=== PATIENT | male | born 1965 | race Caucasian/White ===

== ENCOUNTER 2016-12-04 21:17 | Emergency (ER) | payer BC ==
[2016-12-04] MEDS ORDERED: ONDANSETRON HCL IV 4 MG/2 ML VIAL IVP ONE (21:35)
[2016-12-04] MEDS ORDERED: HYDROMORPHONE HCL 1 MG/ML CPJ IVP ONE (21:35)
--- NOTE | 2016-12-04 21:59 | Emergency Department Record ---
History of Present Illness - General Chief Complaint: Animal Bite Stated Complaint: DOG BITE Time Seen by Provider: 12/04/16 21:35 Source: Patient, Family Mode of Arrival: Ambulatory Limitations: No limitations - History of Present Illness Initial Comments: pt had an unprovoked attack from his dog that is a 150lb mastiff. dog is 18mos. old and has not been neutered. dog has no hx of previous attacks but has been being increasingly aggressive with other dogs in household. family plans to euthanize dog tonight. dog grabbed pts l arm injuring it and his right hand. pts and dogs shots are up to date. MD Complaint: Animal bite Onset/Timin -: Minutes(s) Left: Arm, Right: Hand Animal: Dog Description: Household pet Mechanism: Bite Severity scale (1-10): 10 Context: Unprovoked Associated Symptoms: Bleeding - Related Data Patient Tetanus UTD (within 5 yrs): Yes Home Medications Medication Instructions Recorded Confirmed Last Taken Lisinopril 40 mg PO DAILY 12/04/16 12/04/16 12/04/16 Previous Rx's Medication Instructions Recorded Amoxicillin/Potassium Clav 1 tab PO BID #20 tab 12/04/16 [Augmentin 875-125 Tablet] Hydrocodone/Acetaminophen [[place] 1 tab PO Q6H PRN #10 tab 12/04/16 5mg/325mg] Allergies Allergy/AdvReac Type Severity Reaction Status Date / Time No Known Drug Allergies Allergy Verified 12/04/16 21:24 Travel Screening - Travel/Exposure Within Last 30 Days Have you traveled within the last 30 days?: No - Travel Symptoms Symptom Screening: None Review of Systems Reviewed: No additional complaints except as noted below Constitutional: Reports: As per HPI. Denies: Chills, Fever, Malaise, Night sweats, Weakness, Weight change Eyes: Reports: As per HPI. Denies: Eye discharge, Eye pain, Photophobia, Vision change ENT: Reports: As per HPI. Denies: Congestion, Dental pain, Ear pain, Epistaxis , Hearing loss, Throat pain Respiratory: Reports: As per HPI. Denies: Cough, Dyspnea, Hemoptysis, Stridor, Wheezes Cardiovascular: Reports: As per HPI. Denies: Arrhythmia, Chest pain, Dyspnea on exertion, Edema, Murmurs, Orthopnea, Palpitations, Paroxysmal nocturnal dyspnea, Rheumatic Fever, Syncope Endocrine: Reports: As per HPI. Denies: Fatigue, Heat or cold intolerance, Polydipsia, Polyuria Gastrointestinal: Reports: As per HPI. Denies: Abdominal pain, Constipation, Diarrhea, Hematemesis, Hematochezia, Melena, Nausea, Vomiting Genitourinary: Reports: As per HPI. Denies: Dysuria, Frequency, Hematuria, Incontinence, Retention, Testicular pain, Testicular mass, Urgency Musculoskeletal: Reports: As per HPI. Denies: Arthralgia, Back pain, Gout, Joint swelling, Myalgia, Neck pain Skin: Reports: As per HPI. Denies: Bruising, Change in color, Change in hair/ nails, Lesions, Pruritus, Rash Neurological: Reports: As per HPI. Denies: Abnormal gait, Confusion, Headache, Numbness, Paresthesias, Seizure, Tingling, Tremors, Vertigo, Weakness Psychiatric: Reports: As per HPI. Denies: Anxiety, Auditory hallucinations, Depression, Homicidal thoughts, Suicidal thoughts, Visual hallucinations Hematological/Lymphatic: Reports: As per HPI. Denies: Anemia, Blood Clots, Easy bleeding, Easy bruising, Swollen glands Past Medical History - SOCIAL HISTORY Smoking Status: Never smoker - RESPIRATORY Hx Respiratory Disorders: No - CARDIOVASCULAR Hx Cardio Disorders: Yes Hx Hypertension: Yes - NEURO Hx Neuro Disorders: No - GI Hx GI Disorders: No - Hx Genitourinary Disorders: No - ENDOCRINE Hx Endocrine Disorders: No - MUSCULOSKELETAL Hx Musculoskeletal Disorders: No - PSYCH Hx Psych Problems: No - HEMATOLOGY/ONCOLOGY Hx Hematology/Oncology Disorders: No Family Medical History Any Significant Family History?: Yes Hx Cancer: Mother Hx Heart Disease: Mother, Grandparents Physical Exam - General General Appearance: Alert, Oriented x3, Cooperative, Mild distress - Head Head exam: Normal inspection - Eye Eye exam: Normal appearance, PERRL, EOMI Pupils: Normal accommodation - ENT ENT exam: Normal exam, Mucous membranes moist, Normal external ear exam, Normal orophraynx Ear exam: Normal external inspection. negative: External canal tenderness Nasal Exam: Normal inspection. negative: Discharge, Sinus tenderness Mouth exam: Normal external inspection, Tongue normal Teeth exam: Normal inspection. negative: Dental caries Throat exam: Normal inspection. negative: Tonsillar erythema, Tonsillar exudate - Neck Neck exam: Normal inspection, Full ROM. negative: Tenderness - Respiratory Respiratory exam: Normal lung sounds bilaterally. negative: Respiratory distress - Cardiovascular Cardiovascular Exam: Regular rate, Normal rhythm, Normal heart sounds - GI/Abdominal GI/Abdominal exam: Soft, Normal bowel sounds. negative: Tenderness - Rectal Rectal exam: Deferred - exam: Deferred - Extremities Extremities exam: Full ROM, Normal capillary refill, Tenderness Image of Full Body: 1 - bite mejia on both sides w swelling and tenderness 2 - lac from dog bite - Back Back exam: Reports: Normal inspection, Full ROM. Denies: Muscle spasm, Rash noted, Tenderness - Neurological Neurological exam: Alert, Normal gait, Oriented X3, Reflexes normal - Psychiatric Psychiatric exam: Normal affect, Normal mood - Skin Skin exam: Dry, Intact, Normal color, Warm Course Vital Signs 12/04/16 21:22 Temperature 98 F Pulse Rate [ 72 Pulse Ox Probe] Respiratory 16 Rate Blood Pressure 156/102 [Right Arm] Pulse Ox 97 Medical Decision Making - Management Options MDM Management: Additional Work-up Planned (e.g. ADM/Transfer/OP Study) - Data Complexity MDM Data: X-Ray Ordered and/or Reviewed - Radiology Data Radiology results: Report reviewed, Image reviewed Disposition Disposition: Discharge Clinical Impression: Dog bite of arm Qualifiers: Encounter type: initial encounter Laterality: left Qualified Code(s): S41.152A - Open bite of left upper arm, initial encounter; W54.0XXA - Bitten by dog, initial encounter Disposition: Home, Self-Care Return To Work/School Note Provided: No Condition: (1) Good Instructions: Animal Bite (ED) Additional Instructions: recheck tomorrow. return sooner if worse. Prescriptions: Amoxicillin/Potassium Clav [Augmentin 875-125 Tablet] 1 tab PO BID #20 tab Hydrocodone/Acetaminophen [[place] 5mg/325mg] 1 tab PO Q6H PRN #10 tab PRN Reason: Pain - General Forms: Patient Portal Access Laceration - Other - Time Out Informed consent:: Informed consent obtained Confirmed first & last name, , procedure, correct site?: Yes Start Date:: 12/04/16 Start Time:: 22:40 - Location Location of laceration:: Left Laceration located on:: Forearm Length of laceration:: 2.5 Length of laceration:: cm Full Body: 1 - 2.5 - Clean and Prep Laceration cleaning method:: Copious Irrigation Laceration cleaning agent:: Normal Saline - Local Anesthetic Lidocaine used:: 1% Lidocaine dose:: 1 mL - Medication Medication(s) administered:: Hydromorphine - Procedural Detail Tissue detail:: Torn Foreign body in the wound?: No Undermining was preformed?: No Stent applied?: No Fowler applied?: No Retention suture(s) applied?: No Skin suture pattern:: Interrupted Suture material/size:: 5-0: Prolene Number of skin sutures:: 1 Neurovascular intact?: Yes - Post Procedural Detail Complications:: Yes Procedure Tolerated by Patient:: Well Laceration - Other - Time Out Informed consent:: Informed consent obtained Confirmed first & last name, , procedure, correct site?: Yes Start Date:: 12/04/16 Start Time:: 22:55 - Location Location of laceration:: Left Laceration located on:: Forearm Length of laceration:: 3 Length of laceration:: cm Full Body: 1 - 3 cm lac - Clean and Prep Laceration cleaning method:: Copious Irrigation Laceration cleaning agent:: Normal Saline - Local Anesthetic Lidocaine used:: 1% Lidocaine dose:: 1 mL - Medication Medicated for procedure?: Yes Medication(s) administered:: Hydromorphine - Procedural Detail Foreign body in the wound?: No Undermining was preformed?: No Stent applied?: No Niyah applied?: No Skin suture pattern:: Interrupted Suture material/size:: 5-0: Prolene Neurovascular intact?: Yes - Post Procedural Detail Complications:: No Procedure Tolerated by Patient:: Well
[2016-12-04] MEDS ORDERED: AMOXICILLIN/POTASSIUM CLAV 875MG/125MG TABLET PO ONE (22:37)
[2016-12-04] MEDS ORDERED: HYDROCODONE/APAP 5/325MG TABLET PO ONE (23:21)
--- NOTE | 2016-12-06 13:59 | RADIOLOGY REPORT ---
EXAM: LEFT FOREARM, TWO VIEWS HISTORY: PATIENT HAS A DOG BITE TO THE LEFT FOREARM. TECHNIQUE: Two views of the left forearm are provided without comparison studies. FINDINGS: There is no radiographic evidence of a fracture or dislocation of the left forearm. Subcutaneous emphysematous changes are identified within the dorsum of the left forearm consistent with the patient's history of dog bite. No radiopaque foreign bodies are identified. IMPRESSION: SUBCUTANEOUS EMPHYSEMATOUS CHANGES OF THE DISTAL LEFT FOREARM ARE NOTED WITHOUT RADIOGRAPHIC EVIDENCE OF A FRACTURE OR DISLOCATION OF THE LEFT FOREARM. NO RADIOPAQUE FOREIGN BODIES ARE IDENTIFIED. JOB NUMBER: [id number] [facility]
--- NOTE | 2016-12-06 14:02 | RADIOLOGY REPORT ---
EXAM: RIGHT HAND, THREE VIEWS HISTORY: PATIENT HAS A HISTORY OF DOG BITE. TECHNIQUE: Three views of the right hand were provided without comparison studies. FINDINGS: There is no radiographic evidence of a fracture or dislocation of the right hand. No significant soft tissue abnormalities are visualized. Moderate osteoarthritic changes are identified at the second distal and proximal interphalangeal joint. Moderate osteoarthritic changes of the distal interphalangeal joint of the third digit are noted. IMPRESSION: OSTEOARTHRITIC CHANGES OF THE RIGHT HAND ARE NOTED WITHOUT RADIOGRAPHIC EVIDENCE OF AN ACUTE PROCESS INVOLVING THE RIGHT HAND. [facility]: [id number] [facility]
== END 2016-12-04 23:35 | disposition home or self-care (01) ==
LOC: ER 21:17
DX: S51.852A Open bite of left forearm, initial encounter (principal); W54.0XXA Bitten by dog, initial encounter; Y92.009 Unspecified place in unspecified non-institutional (private) residence as the place of occurrence of the external cause
CPT/HCPCS: 12032 ×2; 99284 ×2; 96374; 96375; 73090; 73130; J2405; J1170

== ENCOUNTER 2016-12-05 18:47 | Emergency (ER) | payer BC ==
--- NOTE | 2016-12-05 19:12 | Emergency Department Record ---
History of Present Illness - General Chief Complaint: Wound, check Stated Complaint: RE CHECK Time Seen by Provider: 12/05/16 19:04 Source: Patient Mode of arrival: Ambulatory Limitations: No limitations - History of Present Illness Initial Comments: 51 yo male presents to ED for a re-evaluation of left forearm and right hand injury last night (21:00) resulting from a dog bite (patient's dog). Patient reports that the swelling and pain to the left forearm have improved, right hand is slightly more swollen than last night. Patient denies fevers, chills, or other symptoms. Patient denies health problems other than HTN. MD Complaint: Wound re-check Onset/Timin -: Hour(s) Initial Visit For: Animal bite Returns Today for: Wound recheck Symptoms Since Prior Visit: No new symptoms Associated Symptoms: None Treatments Prior to Arrival: Given antibiotics on initial visit - Related Data Home Medications Medication Instructions Recorded Confirmed Last Taken Lisinopril 40 mg PO DAILY 12/04/16 12/05/16 12/05/16 Previous Rx's Medication Instructions Recorded Amoxicillin/Potassium Clav 1 tab PO BID #20 tab 12/04/16 [Augmentin 875-125 Tablet] Hydrocodone/Acetaminophen [[place] 1 tab PO Q6H PRN #10 tab 12/04/16 5mg/325mg] Allergies Allergy/AdvReac Type Severity Reaction Status Date / Time No Known Drug Allergies Allergy Verified 12/04/16 21:24 Review of Systems Constitutional: Denies: Chills, Fever, Malaise, Night sweats Eyes: Denies: Eye discharge, Eye pain ENT: Denies: Congestion, Ear pain, Epistaxis Respiratory: Denies: Cough, Dyspnea Cardiovascular: Denies: Chest pain, Dyspnea on exertion Endocrine: Denies: Fatigue, Heat or cold intolerance Gastrointestinal: Denies: Abdominal pain, Nausea, Vomiting Genitourinary: Denies: Hematuria, Incontinence, Retention, Testicular pain Musculoskeletal: Reports: Myalgia. Denies: Arthralgia, Back pain, Gout, Joint swelling Skin: Reports: Change in color (redenss to the left forearm (improved per patient), mild redness to the dorsum of the right hand (slightly more swollen, no extension of redness noted).). Denies: Bruising, Change in hair/nails, Lesions, Pruritus Neurological: Denies: Abnormal gait, Confusion, Headache, Seizure, Tingling Psychiatric: Denies: Anxiety Hematological/Lymphatic: Denies: Anemia, Blood Clots Past Medical History - SOCIAL HISTORY Smoking Status: Never smoker - RESPIRATORY Hx Respiratory Disorders: No - CARDIOVASCULAR Hx Cardio Disorders: Yes Hx Hypertension: Yes - NEURO Hx Neuro Disorders: No - GI Hx GI Disorders: No - Hx Genitourinary Disorders: No - ENDOCRINE Hx Endocrine Disorders: No - MUSCULOSKELETAL Hx Musculoskeletal Disorders: No - PSYCH Hx Psych Problems: No - HEMATOLOGY/ONCOLOGY Hx Hematology/Oncology Disorders: No Family Medical History Hx Cancer: Mother Hx Heart Disease: Mother, Grandparents Physical Exam - General General Appearance: Alert, Oriented x3, Cooperative, No acute distress Limitations: No limitations - Head Head exam: Atraumatic, Normocephalic, Normal inspection Head exam detail: negative: Abrasion, Contusion, Cole's sign, General tenderness, Hematoma, Laceration - Eye Eye exam: Normal appearance. negative: Conjunctival injection, Periorbital swelling, Periorbital tenderness, Scleral icterus - ENT Ear exam: negative: Auricular hematoma, Auricular trauma Nasal Exam: negative: Active bleeding, Discharge, Dried blood, Foreign body Mouth exam: negative: Drooling, Laceration, Muffled voice, Tongue elevation - Neck Neck exam: Normal inspection. negative: Meningismus, Tenderness - Respiratory Respiratory exam: Normal lung sounds bilaterally. negative: Respiratory distress, Rhonchi, Stridor, Wheezes - Cardiovascular Cardiovascular Exam: Regular rate, Normal rhythm, Normal heart sounds Peripheral Pulses: 3+: Radial (R), Radial (L) - GI/Abdominal GI/Abdominal exam: Soft. negative: Rebound, Rigid, Tenderness - Rectal Rectal exam: Deferred - exam: Deferred - Extremities Extremities exam: Tenderness, Other (Mild erythema and STS over the right hand dorsally, FROM of all digits, mild TTP. Left forearm has erythema proximally from judt below the elbow to near wrist, mild STS swelling is present, decreased extension of the wrist when compared with the right UE. Compartments are soft on examination.). negative: Calf tenderness, Pedal edema - Back Back exam: Reports: Normal inspection. Denies: CVA tenderness (R), CVA tenderness (L), Paraspinal tenderness, Rash noted - Neurological Neurological exam: Alert, Normal gait, Oriented X3 - Psychiatric Psychiatric exam: Normal affect, Normal mood. negative: Anxious - Skin Skin exam: Erythema Type of lesion: Other (inflammation/cellulitis) Distribution of rash: VARGAS[place]INCERE Description of rash: Confluent Course - Reevaluation(s) Reevaluation #1: 12/05/16 19:13 Case was discussed with Dr. Bryan, will have the patient follow-up tomorrow. Cellulitis resulting from the dog bite does not appears to be worsening from last night, IV antibiotics are not felt to bee needed at this time. Patient appears stable for discharge at this time with instructions to continue his current outpatient management and to return for any fevers, chills, increased redness, or worsening of his condition. Patient verbalizes understanding of all instructions. 12/05/16 19:25 Disposition Disposition: Discharge Clinical Impression: Dog bite of arm Qualifiers: Encounter type: sequela Laterality: unspecified laterality Qualified Code(s): S41.159S - Open bite of unspecified upper arm, sequela Instructions: Animal Bite (ED) Additional Instructions: Return to ED if your symptoms worsen or if you have any concerns. Call Dr. Bryan tomorrow for follow-up of your left forearm injury. Continue antibiotics as directed. Referrals: LELA BRYAN [] - Forms: Patient Portal Access Time of Disposition: 19:12
== END 2016-12-05 19:30 | disposition home or self-care (01) ==
LOC: ER 18:47
DX: S51.852A Open bite of left forearm, initial encounter (principal); W54.0XXA Bitten by dog, initial encounter; Y92.009 Unspecified place in unspecified non-institutional (private) residence as the place of occurrence of the external cause
CPT/HCPCS: 99282